=== PATIENT | female | born 1950 ===

== ENCOUNTER 2021-07-29 07:45 | Inpatient (IN) | payer OTHER ==
[~2021-07-29] VITALS: Ht 160 cm; Wt 63.0 kg
[2021-07-29] MEDS ORDERED: CRESTOR5 MG PO (08:58)
[2021-07-29] MEDS ORDERED: PROTONIX40 MG PO (08:58)
[2021-07-29] MEDS ORDERED: ADULT LOW DOSE81 M1 PO (08:59)
[2021-07-29] MEDS ORDERED: OMEGA-31000 MG PO (08:59)
[2021-07-29] MEDS ORDERED: NORVASC5 MG PO (08:59)
[2021-08-01] MEDS ORDERED: OMEPRAZOLE40 MG (08:45)
[2021-08-02] MEDS ORDERED: IBUPROFEN600 MG PO (08:23)
[2021-08-02] MEDS ORDERED: COLACE100 MG PO (08:24)
[2021-08-02] MEDS ORDERED: TRAMADOL HCL50 MG PO (08:24)
== END 2021-08-02 10:28 | disposition home or self-care (01) | DRG 743 ==
LOC: O/R 07-31 07:00 → OB/GYN 07-31 07:00 → SURH 07-31 07:45 → OB/GYN 07-31 13:09
PROVIDERS: ADMIT Obstetrics & Gynecology; ATTEND Obstetrics & Gynecology
PROC: 0UQF7ZZ Repair Cul-de-sac, Via Natural or Artificial Opening (ICD-10-PCS; 2021-07-31)
PROC: 0JQC0ZZ Repair Pelvic Region Subcutaneous Tissue and Fascia, Open Approach (ICD-10-PCS; 2021-07-31)
PROC: 0USG7ZZ Reposition Vagina, Via Natural or Artificial Opening (ICD-10-PCS; 2021-07-31)
PROC: 0TJB8ZZ Inspection of Bladder, Via Natural or Artificial Opening Endoscopic (ICD-10-PCS; 2021-07-31)
PROC: 0UT97ZZ Resection of Uterus, Via Natural or Artificial Opening (ICD-10-PCS; principal; 2021-07-31 09:00)
DX: N81.3 Complete uterovaginal prolapse (principal); N72 Inflammatory disease of cervix uteri